=== PATIENT | female | born 1990 | race African-American/Black ===

== ENCOUNTER 2020-04-25 02:04 | Emergency (ER) | payer MEDICAID ==
[~2020-04-25] VITALS: Ht 152.4 cm; Wt 132.0 kg
[2020-04-25 02:45] VITALS: BP 155/79
[2020-04-25] MEDS ORDERED: KETOROLAC 30MG/ML VIAL IM ONE (02:45)
[2020-04-25] MEDS ORDERED: ACETAMINOPHEN 325MG TABLET PO ONE (02:45)
[2020-04-25 03:12] LABS: CLARITY URINE CLOUDY (CLEAR); COLOR URINE YELLOW (YELLOW); KETONES URINE TRACE (NEGATIVE); LEUKOCYTE ESTERASE URINE 2+ (NEGATIVE); NITRITE URINE NEGATIVE (NEGATIVE); OCCULT BLOOD URINE TRACE (NEGATIVE); PH URINE 5.5 (4.5-8.0); PROTEIN URINE TRACE (NEGATIVE); SPECIFIC GRAVITY URINE 1.038 (1.005-1.030)
[2020-04-25] MEDS ORDERED: ONDANSETRON 4MG ODT PO ONE (03:15)
[2020-04-25 03:28] LABS: EOSINOPHILS % 0.6 % (0.0-5.0); HEMATOCRIT. 39.6 % (36.0-48.0); HEMOGLOBIN. 13.2 g/dL (12.0-16.0); LYMPHOCYTES % 25.2 % (20.0-50.0); MEAN CORPUSCULAR HEMOGLOBIN 26.2 pg (28.0-32.0); MEAN CORPUSCULAR VOLUME 78.6 fL (81.0-99.0); MEAN PLATELET VOLUME 9.3 fl (7.4-10.4); MONOCYTES % 5.6 % (2.0-8.0); NEUTROPHILS % 67.6 % (40.0-76.0); PLATELET 215 x1000/uL (130-400); RED BLOOD CELL COUNT 5.04 mill/uL (4.2-5.4); RED CELL DISTRIBUTION WIDTH 14.9 % (11.6-14.6)
[2020-04-25 03:34] LABS: CHLORIDE 108 mEq/L (98-107)
== END 2020-04-25 04:54 | disposition home or self-care (01) ==
LOC: ER 02:19
DX: N12 Tubulo-interstitial nephritis, not specified as acute or chronic (principal); N39.0 Urinary tract infection, site not specified; M54.5 Low back pain; E28.2 Polycystic ovarian syndrome
CPT/HCPCS: 36415; 80053; 81003; 81025; 85025; 87086; 96372; 99283; J1885; Q0162

== ENCOUNTER 2020-09-10 22:23 | Emergency (ER) | payer MEDICAID ==
[~2020-09-10] VITALS: Ht 157.5 cm; Wt 126.0 kg
[2020-09-11] MEDS ORDERED: KETOROLAC 60MG/2ML VIAL IM STA (01:05)
[2020-09-11 01:11] VITALS: BP 169/83
[2020-09-11 01:50] LABS: CLARITY URINE CLEAR (CLEAR); COLOR URINE YELLOW (YELLOW); KETONES URINE TRACE (NEGATIVE); LEUKOCYTE ESTERASE URINE TRACE (NEGATIVE); NITRITE URINE NEGATIVE (NEGATIVE); OCCULT BLOOD URINE NEGATIVE (NEGATIVE); PROTEIN URINE TRACE (NEGATIVE); SPECIFIC GRAVITY URINE 1.036 (1.005-1.030)
[2020-09-11] MEDS ORDERED: SULF1TAB48 PO (03:31)
[2020-09-11] MEDS ORDERED: IBUP-2030 PO (03:31)
== END 2020-09-11 03:38 | disposition home or self-care (01) ==
LOC: ER 22:23
DX: M54.9 Dorsalgia, unspecified (principal); N39.0 Urinary tract infection, site not specified; N83.202 Unspecified ovarian cyst, left side; N83.201 Unspecified ovarian cyst, right side; Z87.440 Personal history of urinary (tract) infections
CPT/HCPCS: 76830; 76856; 81003; 81025; 96372; 99284; J1885; Z7610

== ENCOUNTER 2020-09-13 04:42 | Emergency (ER) | payer MEDICAID ==
[~2020-09-13] VITALS: Ht 157.5 cm; Wt 127.0 kg
[~2020-09-13 04:42] MED LIST: IBUP-2030 PO; SULF1TAB48 PO
[2020-09-13] MEDS ORDERED: KETOROLAC 30MG/ML VIAL IM ONE (05:15)
[2020-09-13] MEDS ORDERED: IBUP-2030 MT (06:21)
[2020-09-13 06:49] VITALS: BP 129/76
== END 2020-09-13 07:04 | disposition home or self-care (01) ==
LOC: ER 04:46
DX: R10.9 Unspecified abdominal pain (principal)
CPT/HCPCS: 74176; 96372; 99284; J1885